=== PATIENT | female | born 1945 | race Caucasian/White ===

== ENCOUNTER → 2018-04-30 | Outpatient (REF) | payer MEDICARE ==
[~2018-04-30] MED LIST: AMOXICILLIN875 MG PO; ASTELIN NASA137 MCG; AUGMENTIN875TAB OR; CALCIUM600 M1 OR; CITALOPRAM10 MG PO; CO Q-10100 MG OR; FISH OIL1000 MG PO; FLONASE NASAL50 MCG; KEFLEX500 MG PO; LISINOPRIL20 MG PO; LISINOPRIL30 MG OR; NASACORT AQ55 MCG/AC; RED YEAST XX; RESVERATROL100 MG OR; SIMVASTATIN10 MG PO; TENORMIN PO; TENORMIN50 MG PO; TESSALON200 MG PO; ULTRAM50 M1 PO; VITAMIN C500 MG OR; VITAMIN D400 UNI2 OR
[2018-04-30 12:03] LABS: HEMATOCRIT 40.8 % (37.0-47.0); HEMOGLOBIN 13.6 g/dl (12.0-16.0); MEAN CELL VOLUME 95.3 fL CALC (80.0-100.0); MEAN CORPUSCULAR HGB 31.8 pG CALC (26.0-32.0); MEAN CORPUSCULAR HGB CONC 33.3 g/L CALC (32.0-36.0); RED BLOOD COUNT 4.28 mill/uL (4.20-5.60); RED CELL DISTRI WIDTH 13.4 % (11.5-15.5)
[2018-04-30 12:21] LABS: ALBUMIN 4.1 g/dL (3.2-5.0); ALKALINE PHOSPHATASE 53 u/l (38-126); ANION GAP 14 (6-22 (CALC)); BILIRUBIN, TOTAL 0.5 mg/dL (0.0-1.4); BUN 11 mg/dL (8-23); BUN/CREATININE RATIO 13 (12-20 (CALC)); CALCULATED LDLCHOLESTEROL 101 mg/dL (62-129 (CALC)); CARBON DIOXIDE 29 mmol/l (22-30); CHLORIDE 103 mmol/l (95-108); CHOLESTEROL HDL RATIO 3.3 (<4.4 (CALC)); CREATININE 0.9 mg/dL (0.5-1.0); GFR > 60 ML/MIN (>=60 (CALC)); GFR FOR AFR.AMER. > 60 ML/MIN (>=60 (CALC)); HDL CHOLESTEROL 58 mg/dL (>=40); POTASSIUM 4.5 mmol/l (3.5-5.1); SGOT/AST 37 u/l (9-36); SODIUM 142 mmol/l (137-146); TOTAL CHOLESTEROL 192 mg/dl (0-199); TOTAL PROTEIN 6.6 g/dL (6.3-8.2); TOTAL TRIGLYCERIDES 164 mg/dl (30-149); VLDL CHOLESTROL 33 mg/dl (0-48 (CALC))
[2018-04-30 12:25] LABS: URINE BILIRUBIN - DIPSTICK NEGATIVE (NEGATIVE); URINE BLOOD DIPSTICK NEGATIVE (NEGATIVE); URINE COLOR YELLOW; URINE GLUCOSE - DIPSTICK NEGATIVE (NEGATIVE); URINE KETONE NEGATIVE (NEGATIVE); URINE LEUK ESTERASE NEGATIVE (NEGATIVE); URINE NITRITE - DIPSTICK NEGATIVE (Negative); URINE PH 7.5 (4.5-8.0); URINE PROTEIN - DIPSTICK NEGATIVE (NEG-TRACE); URINE UROBILINOGEN - DIPSTICK 0.2 E.U./dL (0.2)
[2018-04-30 12:47] LABS: TSH, 3RD GENERATION 1.76 uIU/mL (0.47 - 4.68)
== END | disposition home or self-care (01) ==
LOC: LAB 11:12
PROVIDERS: ATTEND Nurse Practitioner Adult Health
DX: E78.49 Other hyperlipidemia (principal); I10 Essential (primary) hypertension

== ENCOUNTER 2020-01-19 09:55 | Emergency (ER) | payer MEDICARE ==
[~2020-01-19] VITALS: Ht 165.1 cm; Wt 103.6 kg
[2020-01-19 10:35] VITALS: BP 128/65
== END 2020-01-19 10:35 | disposition home or self-care (01) ==
LOC: ED 09:55
DX: H72.92 Unspecified perforation of tympanic membrane, left ear (principal); Z88.8 Allergy status to other drugs, medicaments and biological substances

== ENCOUNTER 2024-04-22 10:44 | Emergency (ER) | payer MEDICARE ==
[2024-04-22] VITALS (8 sets, daily range): BP systolic 151–217; BP diastolic 73–192
[~2024-04-22] VITALS: Ht 165.1 cm; Wt 90.7 kg
[2024-04-22] MEDS ORDERED: MOTRIN400 MG/TAB PO (11:52)
[2024-04-22] MEDS ORDERED: PREDNISONE50 MG PO (11:52)
[2024-04-22] MEDS ORDERED: KETOROLAC TROMETHAMINE 30 MG/ML SDV IM ONE (11:55)
[2024-04-22] MEDS ORDERED: EC-NAPROXEN500 MG PO (12:51)
== END 2024-04-22 12:35 | disposition home or self-care (01) ==
LOC: ED 10:44
DX: M54.31 Sciatica, right side (principal)